=== PATIENT | male | born 1980 | race Caucasian/White ===

== ENCOUNTER 2021-03-23 19:30 | Emergency (ER) | payer OTHER ==
[2021-03-23 19:48] VITALS: BP 133/84
--- NOTE | 2021-03-23 20:02 | ED Physician Documentation ---
History of Present Illness - Stated complaint Stated Complaint: LT ANKLE ROLL - Chief complaint Chief Complaint: Ext Problem - History obtained from History obtained from: Patient - Additonal information Additional information: Presents with left ankle pain after a slip and fall. He was chasing his kids around hill and slipped and fell. He thinks he twisted his left ankle. He initially had a wave of nausea and increased pain but it has since subsided. He did not feel he needed to come in but was encouraged to do so. He is able to bear weight on the leg and move it without difficulty. The pain is already subsiding and he was just concerned about any possible ligamentous injury. He has not attempted any medication. Review of Systems Ten Systems: 10 systems reviewed and negative Musculoskeletal: reports: Joint pain PD PAST MEDICAL HISTORY - Present Medications Home Medications: Ambulatory Orders Medication Instructions Recorded Confirmed No Known Home Medications 03/23/21 03/23/21 - Allergies Allergies/Adverse Reactions: Allergies Allergy/AdvReac Type Severity Reaction Status Date / Time Sulfa (Sulfonamide Allergy Unknown Verified 03/23/21 19:46 Antibiotics) PD ED PE NORMAL - Vitals Vital signs reviewed: Yes - General General: Alert and oriented X 3, No acute distress, Well developed/nourished - HEENT HEENT: Atraumatic - Derm Derm: Normal color, Warm and dry, No rash - Extremities Extremities: No deformity, No tenderness to palpate, Normal ROM s pain, No edema, No calf tenderness / cord, Other (There is no focal left ankle pain or swelling, patient has full range of motion, there is no Achilles pain, no calf pain.) - Neuro Neuro: Alert and oriented X 3 Eye Opening: Spontaneous Motor: Obeys Commands Verbal: Oriented GCS Score: 15 Results - Vitals Vitals: Vital Signs - 24 hr 03/23/21 19:44 Temperature 36.6 C Heart Rate 93 Respiratory 16 Rate Blood Pressure 133/84 H O2 Saturation 97 Oxygen O2 Source Room air PD MEDICAL DECISION MAKING - ED course Complexity details: d/w patient ED course: Presented with a left ankle injury. His physical exam is reassuring and I have low suspicion for fracture given that he has no focal bony tenderness and is able to bear weight and has good range of motion. I did however offer him x-ray but he declined and just wanted reassurance. I reviewed supportive measures including limited activity, elevation, cool compress, ibuprofen. I advised that if he had no improvement in the next 1 to 2 weeks or if he had worsening pain that he could come in for an x-ray at any point time. Departure - Departure Disposition: 01 Home, Self Care Condition: Good Instructions: ED Sprain Ankle Comments: You presented after an ankle injury. Your physical exam is reassuring and you likely have a mild sprain. I did not feel any bony tenderness and have low suspicion for fracture. If you change your mind and would like an x-ray you may return here or follow-up with your primary care provider at any point next week. This should slowly improve over the next 1 to 2 weeks, use a cool compress, limit heavy activity, and he may take ibuprofen or Tylenol for pain.
== END 2021-03-23 20:18 | disposition home or self-care (01) ==
LOC: ED 19:30
DX: S99.912A Unspecified injury of left ankle, initial encounter (principal); X50.1XXA Overexertion from prolonged static or awkward postures, initial encounter; Y93.02 Activity, running; Y92.828 Other wilderness area as the place of occurrence of the external cause
CPT/HCPCS: 99281